=== PATIENT | female | born 1940 | race Caucasian/White ===

== ENCOUNTER 2024-02-14 12:14 | Emergency (ER) | payer MEDICARE, OTHER, SELFPAY ==
[2024-02-14 12:19] VITALS: BP 145/67
[2024-02-14 12:22] VITALS: BP 145/67
[2024-02-14 12:26] VITALS: BMI 22.1
--- NOTE | 2024-02-14 12:34 | ED.MUSCINJ ---
HPI-Injury
General
Chief Complaint: Fall
Source: patient
Exam Limitations: none
Time Seen by Provider: 02/14/24 12:26
History of Present Illness-Injury
Initial Injury comments:
83-year-old female not anticoagulated presents after mechanical fall. She tripped over a cart at a grocery store and fell forward. She hit her left eyebrow on a parking lot. She complains of pain slightly to the head of the left hand and right
knee. No loss of conscious. She denies chest pain or shortness of breath. No other complaints
Phy Exam
Physical Exam
Physical Exam:
General: Well-appearing female no acute respiratory distress
HEENT: Normocephalic abrasion noted to left lateral eyebrow pupils equal round reactive to light TMs normal no facial asymmetry
Heart: Regular rate and rhythm no murmurs
Lungs: Clear no wheeze
Musculoskeletal exam: Mild tenderness about the cervical spine. Left hand slightly tender over the fifth metacarpal right knee tender anteriorly
Neurologic: Alert and oriented good muscle tone conversing appropriately
Injury Course
Orders/Labs/Results
Orders:
Orders
02/14/24 12:33
CT Cervical Spine W/o Iv Contr Urgent
Comment:
Reason For Exam: fall
CR Hand - Left Min 3 Views Urgent
Comment:
Reason For Exam: fall
CR Knee- Right 4 Or More View* Urgent
Comment:
Reason For Exam: fall
02/14/24 12:34
CT Head W/o Iv Contrast Urgent
Comment:
Reason For Exam: fall
02/14/24 15:20
Knee Immobilizer Right-Treatme ONCE
MDM/Problems Addressed
Differential Diagnosis Includes:
Mechanical fall with head strike. CT head and cervical spine pending. X-ray left hand and right knee pending. The wound was irrigated and cleansed. Considered sutures but not indicated as it is more of a superficial abrasion.
*Critical Care Note
Total Time (30-74mins, 75-104mins- exclusive of procedures): Not Applicable
Update Note
Update Note:
CT head and cervical spine negative for acute finding. X-ray left hand visualized and negative for acute finding. There is a nondisplaced fracture of the inferior pole of the patella on the right knee. She is functional. Will place in knee
immobilizer and have her follow-up with orthopedics. Stable for discharge.
ED Attending Note
-
Portions of this chart may have been created with voice recognition software.� Occasional wrong word or��sound alike� substitutions may have occurred due to the inherent limitations of voice recognition software.
Discharge Plan
Departure
Patient Disposition: Home (Routine Discharge)
Date of Disposition: 02/14/24
Time of Disposition: 15:22
Patient with high blood pressure during this ER visit?: No
Discharge Problem:
Fracture, patella
Instructions: Wound Care (DC), Knee Immobilizer (DC)
Referrals:
Carole Oviedo MD [Family Provider] -
Warren Foley MD [Active] -
Activity Restrictions/Additional Instructions:
Apply antibacterial ointment to the wound. Use knee immobilizer when ambulating. Avoid bending the right knee. You have a fracture of your patella. You may bear weight within the brace. Follow-up with orthopedics.
Interventions
Interventions:
*Risk Screen - Suicide Last Done: 02/14/24 12:38
*General Assessment Last Done: 02/14/24 12:34
*Neglect/Abuse Screening Last Done: 02/14/24 12:34
*ED COVID-19 Vaccine History Last Done: 02/14/24 12:34
ED-Musculoskeletal Assessment Last Done: 02/14/24 12:32
ED- Neurological Assessment Last Done: 02/14/24 12:33
ED-Skin Assessment Last Done: 02/14/24 12:31
Discharge Date and Time
Print Language: [place]
[2024-02-14 16:20] VITALS: BP 123/68
== END 2024-02-14 16:23 | disposition home or self-care (01) ==
LOC: EMR 12:14
PROVIDERS: EMERGENCY PHYSICIAN Emergency Medicine; FAMILY PHYSICIAN Internal Medicine
DX: S82.091A Other fracture of right patella, initial encounter for closed fracture (principal); S00.212A Abrasion of left eyelid and periocular area, initial encounter; W18.09XA Striking against other object with subsequent fall, initial encounter
CPT/HCPCS: 29505; 99284; 70450; 72125; 73130; 73564